=== PATIENT | female | born 2000 | race Caucasian/White ===

== ENCOUNTER 2022-06-30 18:30 | Emergency (ER) | payer OTHER ==
[~2022-06-30] VITALS: Ht 165.1 cm; Wt 61.3 kg
[2022-06-30 19:06] VITALS: BP 114/75
== END 2022-06-30 22:02 | disposition home or self-care (01) ==
LOC: ER 18:32
DX: R07.89 Other chest pain (principal)
CPT/HCPCS: 93005; 99283